=== PATIENT | male | born 2000 | race Caucasian/White ===

== ENCOUNTER → 2022-09-10 | Outpatient (RCR) | payer OTHER | END | disposition home or self-care (01) | PROVIDERS: ATTEND Family Medicine Sports Medicine | DX: M76.62 Achilles tendinitis, left leg (principal); J45.909 Unspecified asthma, uncomplicated ==

== ENCOUNTER 2022-09-13 08:39 | Outpatient (RCR) | payer OTHER | END 2022-10-11 | disposition home or self-care (01) | PROVIDERS: ATTEND Family Medicine Sports Medicine | DX: M76.62 Achilles tendinitis, left leg (principal); J45.909 Unspecified asthma, uncomplicated ==